=== PATIENT | female | born 1985 | race American Indian/Alaskan Native ===

== ENCOUNTER 2018-03-13 13:24 | Outpatient (CLI) | payer OTHER | END 2018-03-13 13:29 | disposition home or self-care (01) | LOC: NST 13:24 | DX: Z34.83 Encounter for supervision of other normal pregnancy, third trimester (principal) ==

== ENCOUNTER 2018-05-09 11:00 | Inpatient (IN) | payer OTHER ==
[~2018-05-09] VITALS: Ht 152.4 cm; Wt 60.8 kg
[2018-05-16] MEDS ORDERED: PRENATAL FORMU1 EAC1 PO (10:52)
== END 2018-05-19 10:48 | disposition home or self-care (01) | DRG 788 ==
LOC: LDR 05-16 09:28 → OB/GYN 05-16 09:28
PROVIDERS: ADMIT Obstetrics & Gynecology
PROC: 3E033VJ Introduction of Other Hormone into Peripheral Vein, Percutaneous Approach (ICD-10-PCS; 2018-05-16)
PROC: 4A1HXCZ Monitoring of Products of Conception, Cardiac Rate, External Approach (ICD-10-PCS; 2018-05-16)
PROC: 10D00Z1 Extraction of Products of Conception, Low, Open Approach (ICD-10-PCS; principal; 2018-05-16 21:00)
DX: O61.0 Failed medical induction of labor (principal); Z3A.38 38 weeks gestation of pregnancy; Z37.0 Single live birth

== ENCOUNTER 2021-05-04 15:22 | Outpatient (CLI) | payer OTHER ==
[~2021-05-04 15:22] MED LIST: PRENATAL FORMU1 EAC1 PO
== END 2021-05-04 15:52 | disposition home or self-care (01) ==
LOC: NST 15:22
PROVIDERS: ATTEND Obstetrics & Gynecology
DX: Z34.83 Encounter for supervision of other normal pregnancy, third trimester (principal)

== ENCOUNTER 2021-05-31 08:45 | Inpatient (IN) | payer OTHER ==
[~2021-05-31] VITALS: Ht 157.5 cm; Wt 105.7 kg
[2021-06-06] MEDS ORDERED: IRON325 MG PO (19:39)
[2021-06-08] MEDS ORDERED: OXYC1TAB9 PO (07:30)
[2021-06-08] MEDS ORDERED: KETO10TA2 PO (07:30)
== END 2021-06-09 13:06 | disposition home or self-care (01) | DRG 788 ==
LOC: OB/GYN 06-06 19:08 → LDR 06-06 19:08 → OB/GYN 06-06 21:53 → SURH 06-07 08:45 → OB/GYN 06-09 13:06
PROVIDERS: ADMIT Obstetrics & Gynecology; ATTEND Obstetrics & Gynecology
PROC: 4A1HXCZ Monitoring of Products of Conception, Cardiac Rate, External Approach (ICD-10-PCS; 2021-06-06)
PROC: 10D00Z1 Extraction of Products of Conception, Low, Open Approach (ICD-10-PCS; principal; 2021-06-06 19:00)
DX: O34.211 Maternal care for low transverse scar from previous cesarean delivery (principal); Z3A.37 37 weeks gestation of pregnancy; Z37.0 Single live birth; Z20.822 Contact with and (suspected) exposure to COVID-19